=== PATIENT | male | born 1955 | race Caucasian/White ===

== ENCOUNTER 2019-12-23 14:21 | Inpatient (IN) | payer MEDICARE ==
[~2019-12-23] VITALS: Ht 177.8 cm; Wt 68.0 kg
--- NOTE | 2019-12-23 14:45 | NUR ---
c/o difficulty swallowing since last night. PT AAOX4, VSS. RR EVEN & UNLABORED. DENIES CP, SOB, DIZZINESS AT THIS TIME. PT SEEN & EVAL'D BY DR. VILLEGAS. WILL CONT TO MONITOR.
[2019-12-23] MEDS ORDERED: MAG HYDROX/AL HYDROX/SIMETH 30 ML UDC ONE (14:52)
[2019-12-23] MEDS ORDERED: LIDOCAINE VISCOUS 2% UD 15 ML UDC ONE (14:52)
[2019-12-23] MEDS ORDERED: MAG HYDROX/AL HYDROX/SIMETH 30 ML UDC PO ONE (15:00)
[2019-12-23] MEDS ORDERED: LIDOCAINE VISCOUS 2% UD 15 ML UDC MM ONE (15:00)
--- NOTE | 2019-12-23 15:04 | NUR ---
MEDICATED PER ERMD ORDER, PT GITA WELL AT THIS TIME.
[2019-12-23] MEDS ORDERED: ONDANSETRON HCL/PF 4 MG/2 ML VIAL IVP ONE (16:30)
[2019-12-23] MEDS ORDERED: IV NS 0.9% 1,000 ML BAG IV ONE (16:30)
[2019-12-23] MEDS ORDERED: ONDANSETRON HCL/PF 4 MG/2 ML VIAL ONE (16:35)
--- NOTE | 2019-12-23 16:46 | NUR ---
PT VOMITED. MEDICATED FOR N/V PER ERMD ORDER, PT GITA WELL. WILL CONT TO MONITOR.
[2019-12-23 16:51] LABS: BASOPHILS % (AUTO) 0.6 % (0.0-2.0); EOSINOPHILS % (AUTO) 0.1 % (0.0-6.0); HEMATOCRIT 46 % (39-51); HEMOGLOBIN 15.6 g/dL (13.5-17.5); LYMPHOCYTES # (AUTO) 0.6 /CMM (0.8-4.8); LYMPHOCYTES % (AUTO) 12.5 % (20.0-44.0); MEAN CORPUSCULAR HGB CONC 34 g/dl (31.0-36.0); MEAN CORPUSCULAR VOLUME 95 fL (80-96); MONOCYTES # (AUTO) 0.1 /CMM (0.1-1.30); MONOCYTES % (AUTO) 1.1 % (2.0-12.0); NEUTROPHILS # (AUTO) 3.8 /CMM (1.8-8.9); NEUTROPHILS % (AUTO) 85.7 % (43.0-81.0); PLATELET COUNT (AUTO) 205 /CMM (150-450); RED BLOOD CELL COUNT(AUTO) 4.88 MIL/uL (4.5-6.0); WHITE BLOOD COUNT (AUTO) 4.5 K/uL (4.3-11.0)
--- NOTE | 2019-12-23 17:08 | NUR ---
CALLED [facility]. VERTICAL CONTOUR BAND SAW OPERATOR WAS PAGED
[2019-12-23] MEDS ORDERED: VALS80TA2 PO (17:12)
[2019-12-23] MEDS ORDERED: AMLO5TAB9 PO (17:12)
[2019-12-23 17:14] LABS: ALBUMIN 4.8 g/dL (3.4-5.0); BILIRUBIN,DIRECT 0.2 mg/dL (0.0-0.2); BILIRUBIN,TOTAL 1.1 mg/dL (0.2-1.0); CREATININE 1.1 mg/dL (0.6-1.3); POTASSIUM 4.5 mmol/L (3.5-5.1); TOTAL PROTEIN, SERUM 9.1 g/dL (6.4-8.2)
--- NOTE | 2019-12-23 17:57 | NUR ---
COVID TEST DONE & SENT TO LAB.
[2019-12-23] MEDS ORDERED: IV NS 0.9% 1,000 ML IV PRN (18:00)
[2019-12-23] MEDS ORDERED: HYDROCODONE/APAP 5/325MG TABLET PO PRN (18:00)
[2019-12-23] MEDS ORDERED: ONDANSETRON HCL/PF 4 MG/2 ML VIAL IVP PRN (18:00)
[2019-12-23] MEDS ORDERED: ACETAMINOPHEN 325 MG TABLET PO PRN (18:00)
[2019-12-23] MEDS ORDERED: Z GUARD REMEDY 2 OZ OINT TP PRN (18:00)
[2019-12-23] MEDS ORDERED: ANESTHESIA TRAY IN PYXIS 1 EA TRAY MC ONE (18:05)
[2019-12-23] MEDS ORDERED: SUCCINYLCHOLINE CHLORIDE 20 MG/ML VIAL ONE (18:33)
--- NOTE | 2019-12-23 18:35 | NUR ---
covid 19 negative.
--- NOTE | 2019-12-23 18:48 | NUR ---
going to 322.1
--- NOTE | 2019-12-23 18:51 | NUR ---
PT TO OR VIA [facility] FOR ENDOSCOPY. PT CONSENTED.
--- NOTE | 2019-12-23 20:00 | NUR ---
MS/RN OPENING NOTES PATIENT TRANSFERRED FROM OR TO ROOM 322-2 VIA GURNEY ESCORT BY GL[employer] PRODUCTS INSPECTOR. PATIENT SUSTAINED NO DURING TRANSPORT. PATIENT IS ABLE TO WALK BY SELF AND TRANSFER ONTO BED. PATIENT IS ALERT AND ORIENTED X 4. STABLE ON ROOM AIR. NO SIGNS OF RESPIRATORY DISTRESS OR SOB. BREATHING IS EVEN AND UNLABORED. VITALS SIGNS ARE WITHIN NORMAL LIMITS. PATIENT HAS IV ON RIGHT AC INTACT RUNNING NS. PATIENT HAS BELONGING WITH HIM. PATIENT OKAY TO DISCHARGE HOME ONCE MEDICALLY STABLE. PATIENT ON CLEAR LIQUID DIET. SAFETY MEASURES ARE IN PLACE, BED IS LOCKED AND PLACED IN THE LOW POSITION, SIDE RAILS UP X 2, CALL LIGHT WITHIN REACH. WILL CONTINUE TO MONITOR.
[2019-12-23 20:10] VITALS: BP 134/79
--- NOTE | 2019-12-23 22:20 | NUR ---
MS/RN CLOSING NOTES PATIENT WILL BE DISCHARGE HOME. PATIENT IS MEDICALLY STABLE, V/S BP 144/89, HR 96, RR 20, O2 99% RA, TEMP 98F. RIGHT AC IV ACCESS HAS BEEN REMOVED. PATIENT ID BAND REMOVED. PATIENT SIGNED ALL DISCHARGE FORMS. PATIENT HAS ALL BELONGINGS WITH HIM. PATIENT IS IN NO SIGNS OF DISTRESS. PATIENT STATES NO PAIN. PATIENT IS TOLERATING CLEAR LIQUIDS WELL, NO TROUBLE SWALLOWING. PATIENT WAS ABLE TO USE THE RESTROOM ON HIS OWN. PATIENT ESCORTED TO ER BY DIGITAL PRE PRESS OPERATOR TO BE PICKED UP GO HOME.
== END 2019-12-23 22:20 | disposition home or self-care (01) | DRG 395 ==
LOC: ER 14:31 → MED 18:49
PROVIDERS: ADMIT Internal Medicine; ATTEND Internal Medicine
PROC: 0D738ZZ Dilation of Lower Esophagus, Via Natural or Artificial Opening Endoscopic (ICD-10-PCS; principal; 2019-12-23)
PROC: 0DC58ZZ Extirpation of Matter from Esophagus, Via Natural or Artificial Opening Endoscopic (ICD-10-PCS; 2019-12-23)
PROC: 0DB68ZX Excision of Stomach, Via Natural or Artificial Opening Endoscopic, Diagnostic (ICD-10-PCS; 2019-12-23)
DX: T18.128A Food in esophagus causing other injury, initial encounter (principal); X58.XXXA Exposure to other specified factors, initial encounter; Y92.89 Other specified places as the place of occurrence of the external cause; K22.2 Esophageal obstruction; Z79.899 Other long term (current) drug therapy; K44.9 Diaphragmatic hernia without obstruction or gangrene; I10 Essential (primary) hypertension; F41.9 Anxiety disorder, unspecified; K29.70 Gastritis, unspecified, without bleeding; K26.9 Duodenal ulcer, unspecified as acute or chronic, without hemorrhage or perforation
CPT/HCPCS: 36415; 43235; 70490-TC; 71250-TC; 80048-TC; 80076-TC; 85025-TC; 85730-TC; 87081-TC; C1726; C9803; G0378; J0330; J2405; J2704; J7030